=== PATIENT | male | born 1995 | race African-American/Black ===

== ENCOUNTER 2017-07-06 21:16 | Emergency (ER) | payer OTHER ==
[~2017-07-06] VITALS: Ht 175.3 cm; Wt 80.7 kg
--- NOTE | 2017-07-06 21:47 | ED.ADGEN ---
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 Patient's currently awaiting referral to tenderness. Patient denies injury. He has not had recent antibiotics. He is currently awaiting referral for referral to oral surgeon for removal of his wisdom teeth.[] Review of Systems Review of Systems ROS as per HPI. All other systems were reviewed and found to be within normal limits, except as documented in this note. Allergies Allergies Allergies Coded Allergies Type Severity Reaction Last Updated Verified No Known Drug Allergies 07/06/17 No Physical Exam Physical Exam Constitutional: Well developed, well nourished, no acute distress, non-toxic appearance. [] HENT: Normocephalic, atraumatic, bilateral external ears normal, oropharynx moist, teeth, white, no gross evidence decay or periodontal disease . [] Eyes: PERRLA, EOMI, conjunctiva normal, no discharge. [] Neck: Normal range of motion, no tenderness, supple, no stridor. [] Cardiovascular:Heart rate regular rhythm, no murmur [] Lungs & Thorax: Bilateral breath sounds clear to auscultation [] Neurologic: Alert and oriented X 3, normal motor function, normal sensory function, no focal deficits noted. [] Psychologic: Affect normal, judgement normal, mood normal. [] EKG EKG [] Radiology/Procedures Radiology/Procedures [] Course & Med Decision Making Course & Med Decision Making Pertinent Labs and Imaging studies reviewed. (See chart for details) [Patient placed on abx for possible caries with instructions to follow up with dentist JAVIER.] Final Impression Final Impression [1. dental pain] Problems: Dragon Disclaimer Dragon Disclaimer This electronic medical record was generated, in whole or in part, using a voice recognition dictation system. LEONARDO HER DO Jul 06, 2017 21:47
[2017-07-06 21:50] VITALS: BP 114/70
== END 2017-07-06 21:50 | disposition home or self-care (01) ==
LOC: ER 21:16
DX: K08.89 Other specified disorders of teeth and supporting structures (principal)
CPT/HCPCS: 99283

== ENCOUNTER 2017-11-04 20:37 | Emergency (ER) | payer OTHER ==
[~2017-11-04] VITALS: Ht 180.3 cm; Wt 83.5 kg
[2017-11-04 20:49] VITALS: BP 139/77
--- NOTE | 2017-11-04 21:07 | PHYS DOC ---
Past History Past Medical History: No Pertinent History Past Surgical History: No Surgical History Alcohol Use: Occasionally Drug Use: None Adult General Chief Complaint Chief Complaint: BACK PAIN - NO INJURY HPI HPI 22-year-old male presents with low back pain. The patient has had intermittent trouble with low back pain since he was a teenager. 2 weeks ago, he began to have more consistent pain with some radiculopathy will lifting weights. He was seen at the clinic and they sent him to PT once a week. This has not helped and he is having some trouble sleeping. He is here to see if there is any thing else that can be done. Denies injury or trauma. Denies spontaneous loss of bowel or bladder. He has been told in the past he has a greater curvature in his back, but he is unsure what this means. He has no other complaints. Review of Systems Review of Systems Constitutional: Denies fever or chills [] Eyes: Denies change in visual acuity, redness, or eye pain [] HENT: Denies nasal congestion or sore throat [] Respiratory: Denies cough or shortness of breath [] Cardiovascular: No additional information not addressed in HPI [] GI: Denies abdominal pain, nausea, vomiting, bloody stools or diarrhea [] : Denies dysuria or hematuria [] Musculoskeletal: Low back pain [] Integument: Denies rash or skin lesions [] Neurologic: Denies headache, focal weakness or sensory changes [] Endocrine: Denies polyuria or polydipsia [] All other systems were reviewed and found to be within normal limits, except as documented in this note. Allergies Allergies Allergies Coded Allergies Type Severity Reaction Last Updated Verified No Known Drug Allergies 07/06/17 No Physical Exam Physical Exam Constitutional: Well developed, well nourished, no acute distress, non-toxic appearance. [] HENT: Normocephalic, atraumatic, bilateral external ears normal, oropharynx moist, no oral exudates, nose normal. [] Eyes: PERRLA, EOMI, conjunctiva normal, no discharge. [] Neck: Normal range of motion, no tenderness, supple, no stridor. [] Cardiovascular:Heart rate regular rhythm, no murmur [] Lungs & Thorax: Bilateral breath sounds clear to auscultation [] Abdomen: Bowel sounds normal, soft, no tenderness, no masses, no pulsatile masses. [] Skin: Warm, dry, no erythema, no rash. [] Back: Tenderness over L2-4 [] Extremities: No tenderness, no cyanosis, no clubbing, ROM intact, no edema. [] Neurologic: Alert and oriented X 3, normal motor function, normal sensory function, no focal deficits noted. [] Psychologic: Affect normal, judgement normal, mood normal. [] Current Patient Data Vital Signs Vital Signs Date Time Temp Pulse Resp B/P (MAP) Pulse Ox O2 Delivery O2 Flow Rate FiO2 11/04/17 20:49 98.5 80 18 97 Room Air EKG EKG [] Radiology/Procedures Radiology/Procedures [] Impressions: No acute findings Course & Med Decision Making Course & Med Decision Making Pertinent Labs and Imaging studies reviewed. (See chart for details) The patient's lumbar x-ray is unremarkable for acute findings. He possibly has a slight Sunday increased lordosis. Since the patient is having more pain with lifting and advised that he stop lifting weights for now. I further advised she take 600 mg of ibuprofen 3 times a day for the next few days to try to calm this down. He should also continue physical therapy. If this does not improve his symptoms he should consider more intense physical therapy. He is stable for discharge at this time. [] Dragon Disclaimer Dragon Disclaimer This electronic medical record was generated, in whole or in part, using a voice recognition dictation system. Departure Departure: Referrals: PCP,UNKNOWN (PCP) LEONARDO JOSEPH DO Nov 04, 2017 21:07
--- NOTE | 2017-11-04 22:28 | RAD ---
LUMBAR SPINE MIN 4V History: Chronic back pain w/radiculopathy Comparison: None. Findings: 5 views lumbar spine are submitted. Lumbar vertebral body stature and AP alignment are maintained. Intervertebral disc spaces are adequate. No acute osseous abnormality is identified by radiographs. There are likely phleboliths in the pelvis bilaterally. Impression: 1. No acute osseous abnormality is identified. Electronically signed by: Ousmane Romo MD (11/04/2017 9:27 PM) [id number]
== END 2017-11-04 21:46 | disposition home or self-care (01) ==
LOC: ER 20:37
DX: M54.5 Low back pain (principal)
CPT/HCPCS: 72110; 99284